=== PATIENT | female | born 1990 | race Two or more races ===

== ENCOUNTER 2017-11-29 08:48 | Outpatient (CLI) | payer MEDICARE ==
[~2017-11-29] VITALS: Ht 160 cm; Wt 75.0 kg
[2017-11-29 09:11] VITALS: BP 127/68
[2017-11-29] MEDS ORDERED: PRENATAL TABLE1 EAC3 PO (09:19)
== END 2017-11-29 12:40 | disposition home or self-care (01) ==
LOC: LDRP-OP 08:48 → 2WEST 08:49 → LDRP-OP 01-17 07:37
PROC: 10S0XZZ Reposition Products of Conception, External Approach (ICD-10-PCS; principal; 2017-11-29)
DX: O32.1XX0 Maternal care for breech presentation, not applicable or unspecified (principal); O99.343 Other mental disorders complicating pregnancy, third trimester; F32.9 Major depressive disorder, single episode, unspecified; Z87.891 Personal history of nicotine dependence; Z3A.37 37 weeks gestation of pregnancy
CPT/HCPCS: 59025; G0378; J3105

== ENCOUNTER 2017-11-30 20:32 | Outpatient (CLI) | payer MEDICARE ==
[~2017-11-30 20:32] MED LIST: PRENATAL TABLE1 EAC3 PO
[2017-11-30 20:45] VITALS: BP 120/70
== END 2017-11-30 21:30 | disposition home or self-care (01) ==
LOC: LDRP-OP 20:32 → 2WEST 20:33 → LDRP-OP 01-17 12:58
DX: O47.1 False labor at or after 37 completed weeks of gestation (principal); Z3A.37 37 weeks gestation of pregnancy
CPT/HCPCS: 59025; G0378

== ENCOUNTER 2017-12-14 06:32 | Outpatient (CLI) | payer BC ==
[~2017-12-14] VITALS: Ht 160 cm; Wt 74.8 kg
[2017-12-14 07:06] VITALS: BP 119/68
[2017-12-16] MEDS ORDERED: IBUPROFEN800 MG PO (08:29)
== END 2017-12-14 08:05 | disposition home or self-care (01) ==
LOC: LDRP-OP 06:32 → 2WEST 06:33 → LDRP-OP 02-05 21:44
DX: O26.893 Other specified pregnancy related conditions, third trimester (principal); Z3A.39 39 weeks gestation of pregnancy
CPT/HCPCS: 59025; G0378